=== PATIENT | female | born 1970 | race American Indian/Alaskan Native ===

== ENCOUNTER 2017-02-20 09:05 | Emergency (ER) | payer BC ==
[2017-02-20 09:49] LABS: Basophils % (Auto) 0.8 % (0.0-1.8); Eosinophils % (Auto) 1.5 % (0.0-4.3); Hematocrit 35.1 % (30.3-42.9); Hemoglobin 11.3 gm/dl (10.1-14.3); Mean Corpuscular HGB Conc 32 % (30-34); Mean Corpuscular Hemoglobin 30 pg (28-32); Mean Corpuscular Volume 92 fl (79-97); Platelet Count 342 K/mm3 (140-440); Red Blood Count 3.82 M/mm3 (3.65-5.03); Red Cell Distribution Width 14.5 % (13.2-15.2); White Blood Count 4.1 K/mm3 (4.5-11.0)
--- NOTE | 2017-02-20 09:51 | Cat Scan Report ---
CRANIAL CT SCAN: History: Headache/hypertension. Serial contiguous axial images were obtained through the cranium. Intravenous contrast material was not administered. The ventricles are normal in size and appearance. There is no mass effect or midline shift. No areas of abnormally increased or decreased attenuation are seen. No mass lesion is seen. The mastoid air cells and visualized portions of the sinuses are normal. IMPRESSION: Cranial CT scan within normal limits.
[2017-02-20 09:59] LABS: Anion Gap 17 mmol/L; BUN/Creatinine Ratio 16.66; Blood Urea Nitrogen 10 mg/dL (7-17); Calcium 8.7 mg/dL (8.4-10.2); Carbon Dioxide 24 mmol/L (22-30); Chloride 101.2 mmol/L (98-107); Glucose 99 mg/dL (65-100); Potassium 3.9 mmol/L (3.6-5.0); Sodium 138 mmol/L (137-145)
--- NOTE | 2017-02-20 12:42 | Emergency Department Report ---
HPI - General Chief Complaint: High BP Time Seen by Provider: 02/20/17 12:11 - HPI HPI: Room 22 The patient is a 46-year-old female presenting with a chief complaint of headache. She states yesterday she developed lightheadedness and headache. Patient states the headache was initially occipital but now is frontal. Patient denies any preceding trauma or history of fever. Patient states she had her blood pressure checked and was found to be elevated at 161/103. The patient states her headache continued to linger and was not relieved with Advil. Patient states today she developed nausea with the headache and decided to come to the ED for evaluation. Location: Head Duration: Constant since yesterday Quality: Headache Severity: Moderate Modifying factors: [see above] Context: [see above] Mode of transportation: The patient drove herself to the emergency department and there are no visitors present ED Past Medical Hx - Past Medical History Previous Medical History?: Yes Hx Hypertension: Yes Hx Diabetes: Yes - Surgical History Past Surgical History?: Yes Additional Surgical History: X 2 - Family History Family history: no significant - Social History Smoking Status: Never Smoker Substance Use Type: None (denies illicit drug use), Alcohol (occasional) - Medications Home Medications: Home Medications Medication Instructions Recorded Confirmed Last Taken Type Famotidine/Ca Carb/Mag Hydrox 1 each PO BID #20 tab.chew 06/17/16 Unknown Rx [Pepcid Complete Tablet Chew] Losartan [Cozaar] 12.5 mg PO QDAY #30 tablet 06/17/16 Unknown Rx HYDROcodone/APAP 5-325 [Sargents 1 - 2 each PO Q6HR PRN #14 tablet 02/20/17 Unknown Rx 5/325] Ondansetron [Zofran ODT TAB] 8 mg PO Q8HR #20 tab.rapdis 02/20/17 Unknown Rx predniSONE [Deltasone] 60 mg PO QDAY #15 tab 02/20/17 Unknown Rx ED Review of Systems ROS: Stated complaint: HEADACHE,HBP/NAUSEA Other details as noted in HPI Comment: All other systems reviewed and negative Constitutional: denies: chills, fever Eyes: denies: eye pain, eye discharge, vision change ENT: denies: ear pain, throat pain Respiratory: denies: cough, shortness of breath, wheezing Cardiovascular: denies: chest pain, palpitations Endocrine: no symptoms reported Gastrointestinal: nausea. denies: vomiting Genitourinary: denies: urgency, dysuria, discharge Musculoskeletal: denies: back pain, joint swelling, arthralgia Skin: denies: rash, lesions Neurological: headache Psychiatric: denies: anxiety, depression Hematological/Lymphatic: denies: easy bleeding, easy bruising Physical Exam - Physical Exam Vital Signs: Vital Signs 02/20/17 09:14 Temperature 98.3 F Pulse Rate 101 H Respiratory 16 Rate Blood Pressure 154/113 O2 Sat by Pulse 100 Oximetry Physical Exam: GENERAL: The patient is well-developed well-nourished []. [] HEENT: Normocephalic. Atraumatic. Extraocular motions are intact. Patient has moist mucous membranes. Slight tenderness to palpation in the right buddhist NECK: Supple. Trachea midline CHEST/LUNGS: Clear to auscultation. There is no respiratory distress noted. HEART/CARDIOVASCULAR: Regular. There is no tachycardia. There is no gallop rub or murmur. ABDOMEN: Abdomen is soft, nontender. Patient has normal bowel sounds. There is no abdominal distention. SKIN: There is no rash. There is no edema. There is no diaphoresis. NEURO: The patient is awake, alert, and oriented. The patient is cooperative. The patient has no focal neurologic deficits. The patient has normal speech. Cranial nerves II through XII grossly intact, door tender 5+/5 bilaterally. Normal sensation throughout. There is no pronator drift. Moves all extremities well MUSCULOSKELETAL: There is no evidence of acute injury. ED Course Vital Signs 02/20/17 09:14 Temperature 98.3 F Pulse Rate 101 H Respiratory 16 Rate Blood Pressure 154/113 O2 Sat by Pulse 100 Oximetry ED Medical Decision Making - Lab Data Result diagrams: 02/20/17 09:24 02/20/17 09:24 Laboratory Tests 02/20/17 02/20/17 02/20/17 09:24 09:24 09:24 WBC 4.1 L RBC 3.82 Hgb 11.3 Hct 35.1 MCV 92 MCH 30 MCHC 32 RDW 14.5 Plt Count 342 Lymph % (Auto) 34.3 [place] % (Auto) 6.7 Eos % (Auto) 1.5 Baso % (Auto) 0.8 Lymph # 1.4 [place] # 0.3 Eos # 0.1 Baso # 0.0 Seg Neutrophils % 56.7 Seg Neutrophils # 2.3 ESR 35 Sodium 138 Potassium 3.9 Chloride 101.2 Carbon Dioxide 24 Anion Gap 17 BUN 10 Creatinine 0.6 L Estimated GFR > 60 BUN/Creatinine Ratio 16.66 Glucose 99 Calcium 8.7 - Radiology Data Radiology results: report reviewed (CT head), image reviewed (CT head) CT head (read by radiologist)-cranial CT scan within normal limits. - Medical Decision Making The patient's ESR is slightly elevated at 35. Although her ESR is not very high recent studies have shown approximately 5% of temporal arteritis patients had an ESR less than 40. Although my suspicion is very low I will initiate steroid treatment empirically until patient is able to follow up. I discussed my concern for temporal arteritis and the ESR value with the patient. Patient verbalizes understanding - Differential Diagnosis hypertensive urgency, ICH, intracranial mass, temporal arteritis, headache Critical care attestation.: If time is entered above; I have spent that time in minutes in the direct care of this critically ill patient, excluding procedure time. ED Disposition Clinical Impression: Headache, Elevated erythrocyte sedimentation rate Disposition: DC- TO HOME OR SELFCARE Is pt being admited?: No Does the pt Need Aspirin: No Condition: Stable Instructions: Temporal Arteritis (ED), Acute Headache (ED) Additional Instructions: Return to the emergency department immediately should you develop worsening symptoms, fever, inability to tolerate food or liquid or any other concerns. 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 Please follow up with him for further evaluation) Time of Disposition: 13:25
[2017-02-20 13:40] VITALS: BP 154/95
== END 2017-02-20 13:40 | disposition home or self-care (01) ==
LOC: ED 09:05
DX: R51 Headache (principal); R70.0 Elevated erythrocyte sedimentation rate; I10 Essential (primary) hypertension; E11.9 Type 2 diabetes mellitus without complications
CPT/HCPCS: 36415; 70450; 80048; 85025; 85652

== ENCOUNTER 2017-03-21 08:59 | Outpatient (CLI) | payer BC ==
--- NOTE | 2017-03-22 13:00 | Nuclear Medicine Report ---
NUCLEAR MEDICINE THYROID UPTAKE MULTIPLE HISTORY: Thyroiditis. FINDINGS: Scintigraphic images of the thyroid gland demonstrate no evidence for focal hot or cold nodule. 4 hour uptake measures 11.3%. Normal range 4-18%. 24 hour uptake measures 25.6%. Normal range 18-36%. IMPRESSION: Thyroid scan and uptake within normal limits.
== END 2017-03-21 09:00 | disposition home or self-care (01) ==
LOC: NM 08:59
PROVIDERS: ATTEND Internal Medicine
DX: E06.9 Thyroiditis, unspecified (principal); I10 Essential (primary) hypertension
CPT/HCPCS: 78012; A9516

== ENCOUNTER 2017-09-07 12:54 | Outpatient (CLI) | payer BC ==
--- NOTE | 2017-09-09 09:53 | Mammography Report ---
Bilateral mammogram: Compared to 01/13/15 and 06/16/16. CAD study utilized. Findings: Heterogeneous breast parenchyma bilaterally. Circumscribed faint density, partially obscured by glandular parenchyma, measuring 5 mm in diameter noted in the posterior left breast along the line of the nipple . Seen only on MLO view. No microcalcification. Benign axilla. Impression: Medial focal dense asymmetry left breast. Recommend spot mag and if necessary sonographic examination. BI-RADS CATEGORY: 0 = Needs additional imaging evaluation ACR BI-RADS MAMMOGRAPHIC CODES: 0 = Needs additional imaging evaluation; 1 = Negative; 2 = Benign; 3 = Probably benign; 4 = Suspicious; 5 = Malignant; 6 = Known biopsy-proven malignancy COMMENT: 1. Dense breast tissue, i.e., adenosis, fibrocystic changes, etc., may obscure an underlying neoplasm. 2. Approximately 10% of cancers are not detected with mammography. 3. A negative mammography report should not delay biopsy if a clinically suspicious mass is present. COMMENT: Patient follow-up letters are generated in [employer].
== END 2017-09-07 12:55 | disposition home or self-care (01) ==
LOC: MAMMO 12:54
PROVIDERS: ATTEND Obstetrics & Gynecology
DX: Z12.31 Encounter for screening mammogram for malignant neoplasm of breast (principal)
CPT/HCPCS: 77067

== ENCOUNTER 2017-10-09 08:09 | Outpatient (CLI) | payer BC ==
--- NOTE | 2017-10-09 08:39 | Mammography Report ---
LEFT DIGITAL DIAGNOSTIC MAMMOGRAM : 10/09/17 08:09:00 CLINICAL: Recalled for asymmetry. COMPARISON:09/07/17 screening FINDINGS: Lateralmedial, exaggerated CC and spot compression MLO views were performed and are negative. IMPRESSION: No mammographic evidence of malignancy. BI-RADS CATEGORY: 1 -- Negative RECOMMENDATION: Routine mammographic screening in one year. ACR BI-RADS MAMMOGRAPHIC CODES: 0 = Needs additional imaging evaluation; 1 = Negative; 2 = Benign; 3 = Probably benign; 4 = Suspicious; 5 = Malignant; 6 = Known biopsy-proven malignancy COMMENT: 1. Dense breast tissue, i.e., adenosis, fibrocystic changes, etc., may obscure an underlying neoplasm. 2. Approximately 10% of cancers are not detected with mammography. 3. A negative mammography report should not delay biopsy if a clinically suspicious mass is present. COMMENT: Patient follow-up letters are generated via our [employer] application.
== END 2017-10-09 08:10 | disposition home or self-care (01) ==
LOC: MAMMO 08:09
PROVIDERS: ATTEND Obstetrics & Gynecology
DX: R92.8 Other abnormal and inconclusive findings on diagnostic imaging of breast (principal); I10 Essential (primary) hypertension

== ENCOUNTER 2019-05-12 09:50 | Observation (INO) | payer BC ==
[2019-05-12] MEDS ORDERED: ASPIRIN 325 MG TAB PO ONE (09:56)
[2019-05-12 10:30] LABS: Basophils % (Auto) 0.6 % (0.0-1.8); Eosinophils # (Auto) 0.1 K/mm3 (0.0-0.4); Eosinophils % (Auto) 1.4 % (0.0-4.3); Hematocrit 34.2 % (30.3-42.9); Hemoglobin 10.8 gm/dl (10.1-14.3); Lymphocytes # (Auto) 1.5 K/mm3 (1.2-5.4); Lymphocytes % (Auto) 27.9 % (13.4-35.0); Mean Corpuscular HGB Conc 32 % (30-34); Mean Corpuscular Volume 91 fl (79-97); Monocytes # (Auto) 0.4 K/mm3 (0.0-0.8); Monocytes % (Auto) 6.7 % (0.0-7.3); Platelet Count 323 K/mm3 (140-440); Red Blood Count 3.76 M/mm3 (3.65-5.03); Red Cell Distribution Width 17.1 % (13.2-15.2)
--- NOTE | 2019-05-12 10:38 | XRay Report ---
CHEST 1 VIEW 05/12/2019 10:28 AM INDICATION / CLINICAL INFORMATION: Chest Pain. COMPARISON: 06/16/16 FINDINGS: SUPPORT DEVICES: None. HEART / MEDIASTINUM: No significant abnormality. LUNGS / PLEURA: No significant pulmonary or pleural abnormality. No pneumothorax. ADDITIONAL FINDINGS: No significant additional findings. IMPRESSION: 1. No acute findings. No change. Signer Name: Chato Calloway MD Signed: 05/12/2019 10:34 AM Workstation Name: [id number]
[2019-05-12 10:42] LABS: BUN/Creatinine Ratio 13; Blood Urea Nitrogen 13 mg/dL (7-17); Calcium 9.3 mg/dL (8.4-10.2); Hemolysis Index 1
[2019-05-12] MEDS ORDERED: ASPIRIN 325 MG TAB ONE ×2 (11:58→12:29)
--- NOTE | 2019-05-12 11:59 | Emergency Department Report ---
ED Chest Pain HPI - General Chief Complaint: Chest Pain Stated Complaint: CHEST PAIN Time Seen by Provider: 05/12/19 10:56 Source: patient Mode of arrival: Ambulatory Limitations: No Limitations - History of Present Illness Initial Comments: This is a 48-year-old female here report that she is having chest pain that she has had in the past which was in 2016. She said she was seen here and was seen by [facility] cardiology where she had a stress test done EKG done but she never had heart cath or echocardiogram then. Patient is complaining the mid chest pain and that she described as heaviness and she has a history of diabetes and hypertension. She is also complaining of some shortness of breath but no radiation of pain. She said this started yesterday and second episode this morning and thus Y when she called her doctor from [place] told her to come to the emergency room. Her blood pressure was 152/103 on arrival and had subsided since. Pain is worse with taking a deep breath. MD Complaint: chest pain -: Last night Onset: during rest Pain Location: substernal Pain Radiation: none Severity: severe Severity scale (0 -10): 8 Quality: heaviness Consistency: constant Improves With: nothing Worsens With: inspiration re: denies: nausea, vomting, diaphoresis, dyspnea, sense of impending doom Other Symptoms: denies: cough, fever, syncope, rash, acid taste in mouth, leg swelling, palpitations, burping (except for given the medication was important) Treatments Prior to Arrival: none Aspirin use within the Past 7 Days: (0) No - Related Data On Oral Contraceptives: No Home Medications Medication Instructions Recorded Confirmed Last Taken Cyclobenzaprine [Flexeril] 10 mg PO DAILY PRN 05/12/19 05/12/19 05/12/19 Metoprolol Xl [Metoprolol 100 mg PO DAILY 05/12/19 05/12/19 05/12/19 SUCCINATE ER TAB] Spironolactone [Aldactone] 50 mg PO DAILY 05/12/19 05/12/19 05/12/19 Allergies Allergy/AdvReac Type Severity Reaction Status Date / Time EZRA Inhibitors Allergy COUGHING Verified 05/12/19 12:18 SEVERE propranolol Allergy Diarrhea,NA Unverified 05/12/19 12:18 USEA Heart Score - HEART Score History: Slightly suspicious EKG: Non-specific Age: 45-65 Risk factors: 1-2 risk factors Troponin: < normal limit HEART Score: 3 - Critical Actions Critical Actions: 0-3 pts:0.9-1.7%risk of adverse cardiac event.Candidate for discharge ED Review of Systems ROS: Stated complaint: CHEST PAIN Other details as noted in HPI Constitutional: denies: chills, fever Eyes: denies: eye discharge ENT: denies: throat pain, congestion Respiratory: denies: cough, shortness of breath, SOB with exertion, wheezing Cardiovascular: chest pain. denies: palpitations, dyspnea on exertion, edema, syncope Gastrointestinal: denies: abdominal pain, nausea, vomiting Musculoskeletal: denies: back pain, joint swelling, arthralgia, myalgia Skin: denies: rash Neurological: denies: headache, paresthesias, abnormal gait, vertigo ED Past Medical Hx - Past Medical History Previous Medical History?: Yes Hx Hypertension: Yes Hx Congestive Heart Failure: No Hx Diabetes: Yes Hx Asthma: No Hx COPD: No - Surgical History Past Surgical History?: Yes Additional Surgical History: X 2 - Family History Family history: hypertension - Social History Smoking Status: Never Smoker Substance Use Type: None - Medications Home Medications: Home Medications Medication Instructions Recorded Confirmed Last Taken Type Cyclobenzaprine [Flexeril] 10 mg PO DAILY PRN 05/12/19 05/12/19 05/12/19 History Metoprolol Xl [Metoprolol 100 mg PO DAILY 05/12/19 05/12/19 05/12/19 History SUCCINATE ER TAB] Spironolactone [Aldactone] 50 mg PO DAILY 05/12/19 05/12/19 05/12/19 History ED Physical Exam - General Limitations: No Limitations General appearance: alert, in no apparent distress - Head Head exam: Present: atraumatic, normocephalic - Eye Eye exam: Present: normal appearance, PERRL, EOMI Pupils: Present: normal accommodation - ENT ENT exam: Present: normal exam, normal orophraynx, mucous membranes moist - Neck Neck exam: Present: normal inspection, full ROM. Absent: tenderness, lymphadenopathy - Respiratory Respiratory exam: Present: normal lung sounds bilaterally. Absent: respiratory distress, chest wall tenderness, accessory muscle use, decreased breath sounds, prolonged expiratory - Cardiovascular Cardiovascular Exam: Present: regular rate, normal rhythm, normal heart sounds. Absent: systolic murmur, diastolic murmur, rubs, gallop, S3, S4 - GI/Abdominal GI/Abdominal exam: Present: soft, normal bowel sounds. Absent: distended, tenderness, rigid, organomegaly, mass, bruit - External exam: Present: normal external exam - Extremities Exam Extremities exam: Present: normal inspection, full ROM, normal capillary refill, other (No cce. + 2 pulses in all extremities, no neurovascular compromise). Absent: tenderness, pedal edema, joint swelling, calf tenderness - Back Exam Back exam: Present: normal inspection. Absent: full ROM, tenderness, rash noted - Neurological Exam Neurological exam: Present: alert, oriented X3, normal gait - Psychiatric Psychiatric exam: Present: normal affect, normal mood - Skin Skin exam: Present: warm, dry, intact, normal color ED Course Vital Signs 05/12/19 05/12/19 05/12/19 09:55 11:22 11:23 Temperature 98.6 F Pulse Rate 95 H 88 Respiratory 18 17 17 Rate Blood Pressure 152/103 Blood Pressure 129/86 [Right] O2 Sat by Pulse 100 100 Oximetry 05/12/19 05/12/19 05/12/19 12:57 14:15 14:47 Temperature Pulse Rate 78 78 74 Respiratory 18 18 Rate Blood Pressure 150/62 Blood Pressure 156/78 154/100 [Right] O2 Sat by Pulse 99 100 Oximetry 05/12/19 05/12/19 05/12/19 14:48 15:08 16:56 Temperature Pulse Rate 70 93 H 93 H Respiratory 18 14 Rate Blood Pressure 117/60 Blood Pressure 126/78 104/61 [Right] O2 Sat by Pulse 99 100 Oximetry - Reevaluation(s) Reevaluation #1: 05/12/19 12:17 Patient is stable at present serum troponin is stable. X-ray stable. EKG is stable. Chest pain is subsided at present. Awaiting second troponin and EKG. Heart score is 3 and PASQUALE is at 2. Patient was given aspirin 325 mg. Reevaluation #2: 05/12/19 14:44 Patient given nitroglycerin and placed on oxygen because of continued chest pain. Serial troponin negative 2 and serial EKG negative. All other lab work are stable. Reevaluation #3: 05/12/19 14:48 Chest pain is 6 out of 10 after nitroglycerin so she is given another dose of nitroglycerin and remained and O2. She also has a headache. See given 975 mg Tylenol by mouth. This is status post nitroglycerin. Reevaluation #4: 05/12/19 15:[address] Jalloh decision to admit patient to telemetry. She stable and in no acute distress. Second dose of nitroglycerin relieved her chest pain. Reevaluation #5: 05/12/19 17:57 Patient stable in no acute distress. She is awaiting in telemetry bed. Her vital signs are stable she is afebrile and she does not have chest pain at present. PASQUALE score - Pasquale Score Age > 65: (0) No Aspirin use within the Past 7 Days: (0) No 3 or more CAD Risk Factors: (1) Yes 2 or more Angina events in past 24 hrs: (1) Yes Known CAD with more than 50% Stenosis: (0) No Elevated Cardiac Markers: (0) No ST Deviation Greater than 0.5mm: (0) No PASQUALE Score: 2 ED Medical Decision Making - Lab Data Result diagrams: 05/12/19 10:03 05/12/19 10:03 Lab Results 05/12/19 05/12/19 05/12/19 Range/Units 10:03 10:03 Unknown WBC 5.3 (4.5-11.0) K/mm3 RBC 3.76 (3.65-5.03) M/mm3 Hgb 10.8 (10.1-14.3) gm/dl Hct 34.2 (30.3-42.9) % MCV 91 (79-97) fl MCH 29 (28-32) pg MCHC 32 (30-34) % RDW 17.1 H (13.2-15.2) % Plt Count 323 (140-440) K/mm3 Lymph % (Auto) 27.9 (13.4-35.0) % [place] % (Auto) 6.7 (0.0-7.3) % Eos % (Auto) 1.4 (0.0-4.3) % Baso % (Auto) 0.6 (0.0-1.8) % Lymph # 1.5 (1.2-5.4) K/mm3 [place] # 0.4 (0.0-0.8) K/mm3 Eos # 0.1 (0.0-0.4) K/mm3 Baso # 0.0 (0.0-0.1) K/mm3 Seg Neutrophils % 63.4 (40.0-70.0) % Seg Neutrophils # 3.4 (1.8-7.7) K/mm3 Sodium 139 (137-145) mmol/L Potassium 4.4 (3.6-5.0) mmol/L Chloride 106.2 (98-107) mmol/L Carbon Dioxide 20 L (22-30) mmol/L Anion Gap 17 mmol/L BUN 13 (7-17) mg/dL Creatinine 1.0 (0.7-1.2) mg/dL Estimated GFR > 60 ml/min BUN/Creatinine Ratio 13 % Glucose 88 (65-100) mg/dL Calcium 9.3 (8.4-10.2) mg/dL Troponin T < 0.010 < 0.010 (0.00-0.029) ng/mL - EKG Data -: EKG Interpreted by Me (attending physician) EKG shows normal: sinus rhythm - EKG Data When compared to previous EKG there are: no significant change Interpretation: nonspecific ST-T wave tito - Radiology Data Radiology results: report reviewed Chest x-ray dictated by radiologist and report reviewed by myself in no acute findings. Findings [address] [address] XRay Report Signed Patient: TL BERRY MR#: [id number] : 1970 Acct:[id number] Age/Sex: 48 / F ADM Date: 05/12/19 Loc: ED Attending Dr: Ordering Physician: ED MD KAVIN Date of Service: 05/12/19 Procedure(s): XR chest 1V ap Accession Number(s): [id number] cc: ED MD KAVIN Fluoro Time In Minutes: CHEST 1 VIEW 05/12/2019 10:28 AM INDICATION / CLINICAL INFORMATION: Chest Pain. COMPARISON: 06/16/16 FINDINGS: SUPPORT DEVICES: None. HEART / MEDIASTINUM: No significant abnormality. LUNGS / PLEURA: No significant pulmonary or pleural abnormality. No pneumothorax. ADDITIONAL FINDINGS: No significant additional findings. IMPRESSION: 1. No acute findings. No change. Signer Name: Chato Calloway MD Signed: 05/12/2019 10:34 AM Workstation Name: [id number] Transcribed By: DT Dictated By: Yosi Calloway MD Electronically Authenticated By: Yosi Calloway MD Signed Date/Time: 05/12/19 1034 DD/ 1033 TD/TT: - Medical Decision Making This is a 48-year-old female here for chest pain that started last night. She says she came in because she called her primary care doctor and he told her to come to the emergency room. Her chest pain was 8 out of 10 upon arrival and she was given aspirin and chest pain went back up so she was given nitroglycerin 2 which second nitroglycerin relieved her chest pain. She was given Tylenol 975 mg for headache status post nitroglycerin. Patient was placed and O2 briefly without any abnormality in O2 sats. Patient was seen by Dr. JALLOH due to decision by Dr. Silver to admit patient because troponin 2 was negative and EKG 2 is stable but she states she still continues to have chest pain. Other lab work was stable. Cardiology consulted - Differential Diagnosis ACS, atypical chest pain, pneumonia, costochondritis Critical care attestation.: If time is entered above; I have spent that time in minutes in the direct care of this critically ill patient, excluding procedure time. ED Disposition Clinical Impression: Elevated blood pressure reading with diagnosis of hypertension Chest pain Qualifiers: Chest pain type: unspecified Qualified Code(s): R07.9 - Chest pain, unspecified Disposition: OP ADMIT IP TO THIS HOSP Is pt being admited?: Yes Does the pt Need Aspirin: No Condition: Stable Instructions: Chest Pain (ED), Hypertension (ED) Referrals: PRIMARY CARE, [Primary Care Provider] - 3-5 Days
[2019-05-12] MEDS ORDERED: NITROGLYCERIN 0.4 MG TAB SUBL SL ONE ×3 (12:30→14:47)
[2019-05-12] MEDS ORDERED: ACETAMINOPHEN 325 MG TAB PO ONE ×2 (14:45→14:46)
[2019-05-12 15:16] LABS: Bacteria,Urine 2+ /HPF (Negative); Bilirubin,Urine NEG (Negative); Blood,Urine SM (Negative); Color,Urine Yellow (Yellow); Mucus,Urine FEW /HPF; Protein,Urine <15 mg/dL mg/dL (Negative); Urobilinogen,Urine < 2.0 mg/dL (<2.0)
[2019-05-12 15:47] LABS: Alanine Aminotransferase 10 units/L (7-56); Albumin 4.4 g/dL (3.9-5); Bilirubin,Direct < 0.2 mg/dL (0-0.2)
[2019-05-12] MEDS ORDERED: CYCLOBENZAPRINE 10 MG TAB PO PRN (20:14)
[2019-05-12] MEDS ORDERED: ONDANSETRON 4 MG/2 ML INJ IV PRN (20:15)
[2019-05-12] MEDS ORDERED: oxyCODONE /ACETAMINOPHEN 5-325MG TAB PO PRN (20:15)
[2019-05-12] MEDS ORDERED: ACETAMINOPHEN 325 MG TAB PO PRN (20:15)
--- NOTE | 2019-05-12 20:28 | History and Physical Report ---
History of Present Illness Date of examination: 05/12/19 Date of admission: 05/12/2019 Chief complaint: Chest pain since a.m. History of present illness: 48-year-old female comes in for chest pain since a.m. Chest pain is intermittent and retrosternal. No diaphoresis no shortness of breath. No radiation. Chest pain is about 6 on a scale of 1-10. Dull in character. Patient had a cardiac workup in 2016 and stress test was negative. Patient did not have a cardiac catheter echocardiogram then. Chest pain as heaviness in nature. No recent travel. Her blood pressure was high--152/103 at [facility] and was sent here for evaluation Past Medical History Hypertension Diabetes Surgical History Past Surgical History?: Yes Additional Surgical History: X 2 Family History Family history: hypertension Social History Smoking Status: Never Smoker Substance Use Type: None - Medications Home Medications: Home Medications Medication Instructions Recorded Confirmed Last Taken Type Cyclobenzaprine [Flexeril] 10 mg PO DAILY PRN 05/12/19 05/12/19 05/12/19 History Metoprolol Xl [Metoprolol 100 mg PO DAILY 05/12/19 05/12/19 05/12/19 History SUCCINATE ER TAB] Spironolactone [Aldactone] 50 mg PO DAILY 05/12/19 05/12/19 05/12/19 History Review of Systems ROS: Stated complaint: CHEST PAIN Other details as noted in HPI Constitutional: denies: chills, fever Eyes: denies: eye discharge ENT: denies: throat pain, congestion Respiratory: denies: cough, shortness of breath, SOB with exertion, wheezing Cardiovascular: chest pain. denies: palpitations, dyspnea on exertion, edema, syncope Gastrointestinal: denies: abdominal pain, nausea, vomiting Musculoskeletal: denies: back pain, joint swelling, arthralgia, myalgia Skin: denies: rash Neurological: denies: headache, paresthesias, abnormal gait, vertigo Past History Past Medical History: diabetes, hypertension Medications and Allergies Allergies Allergy/AdvReac Type Severity Reaction Status Date / Time EZRA Inhibitors Allergy COUGHING Verified 05/12/19 12:18 SEVERE propranolol Allergy Diarrhea,NA Unverified 05/12/19 12:18 USEA Home Medications Medication Instructions Recorded Confirmed Last Taken Type Cyclobenzaprine [Flexeril] 10 mg PO DAILY PRN 05/12/19 05/12/19 05/12/19 History Metoprolol Xl [Metoprolol 100 mg PO DAILY 05/12/19 05/12/19 05/12/19 History SUCCINATE ER TAB] Spironolactone [Aldactone] 50 mg PO DAILY 05/12/19 05/12/19 05/12/19 History Active Meds: Active Medications Acetaminophen (Tylenol) 650 mg PO Q4H PRN PRN Reason: Pain MILD(1-3)/Fever >100.5/VANN Cyclobenzaprine HCl (Flexeril) 10 mg PO DAILY PRN PRN Reason: Spasms Enoxaparin Sodium (Enoxaparin) 40 mg SUB-Q QDAY CHRISSY Hydromorphone HCl (Dilaudid) 0.5 mg IV Q3H PRN PRN Reason: Pain , Severe (7-10) Metoprolol Succinate (Metoprolol Xl) 100 mg PO DAILY CHRISSY Ondansetron HCl (Zofran) 4 mg IV Q8H PRN PRN Reason: Nausea And Vomiting Oxycodone/Acetaminophen (Percocet 5/325) 1 tab PO Q6H PRN PRN Reason: Pain, Moderate (4-6) Sodium Chloride (Sodium Chloride Flush Syringe 10 Ml) 10 ml IV BID HCRISSY Sodium Chloride (Sodium Chloride Flush Syringe 10 Ml) 10 ml IV PRN PRN PRN Reason: LINE FLUSH Spironolactone (Aldactone) 50 mg PO DAILY [facility] Exam - Constitutional Vitals: Temp Pulse Resp BP Pulse Ox 98.6 F 97 H 17 126/84 99 05/12/19 19:15 05/12/19 19:15 05/12/19 19:15 05/12/19 19:15 05/12/19 19:15 General appearance: Present: no acute distress, well-nourished - EENT Eyes: Present: PERRL ENT: hearing intact, clear oral mucosa - Neck Neck: Present: supple, normal ROM - Respiratory Respiratory effort: normal Respiratory: bilateral: CTA - Cardiovascular Heart rate: 91 Rhythm: regular Heart Sounds: Present: S1 & S2. Absent: rub, click - Extremities Extremities: no ischemia, pulses intact, pulses symmetrical, No edema Peripheral Pulses: within normal limits - Abdominal General gastrointestinal: Present: soft, non-tender, non-distended, normal bowel sounds Female genitourinary: Present: normal - Rectal Rectal Exam: deferred - Integumentary Integumentary: Present: clear, warm, dry - Musculoskeletal Musculoskeletal: gait normal, strength equal bilaterally - Psychiatric Psychiatric: appropriate mood/affect, intact judgment & insight - Neurologic Neurologic: CNII-XII intact, moves all extremities - Allied Health Allied health notes reviewed: nursing Results - Labs CBC & Chem 7: 05/12/19 10:03 05/12/19 10:03 Labs: Laboratory Last Values WBC 5.3 K/mm3 (4.5-11.0) 05/12/19 10:03 RBC 3.76 M/mm3 (3.65-5.03) 05/12/19 10:03 Hgb 10.8 gm/dl (10.1-14.3) 05/12/19 10:03 Hct 34.2 % (30.3-42.9) 05/12/19 10:03 MCV 91 fl (79-97) 05/12/19 10:03 MCH 29 pg (28-32) 05/12/19 10:03 MCHC 32 % (30-34) 05/12/19 10:03 RDW 17.1 % (13.2-15.2) H 05/12/19 10:03 Plt Count 323 K/mm3 (140-440) 05/12/19 10:03 Lymph % (Auto) 27.9 % (13.4-35.0) 05/12/19 10:03 [place] % (Auto) 6.7 % (0.0-7.3) 05/12/19 10:03 Eos % (Auto) 1.4 % (0.0-4.3) 05/12/19 10:03 Baso % (Auto) 0.6 % (0.0-1.8) 05/12/19 10:03 Lymph # 1.5 K/mm3 (1.2-5.4) 05/12/19 10:03 [place] # 0.4 K/mm3 (0.0-0.8) 05/12/19 10:03 Eos # 0.1 K/mm3 (0.0-0.4) 05/12/19 10:03 Baso # 0.0 K/mm3 (0.0-0.1) 05/12/19 10:03 Seg Neutrophils % 63.4 % (40.0-70.0) 05/12/19 10:03 Seg Neutrophils # 3.4 K/mm3 (1.8-7.7) 05/12/19 10:03 Sodium 139 mmol/L (137-145) 05/12/19 10:03 Potassium 4.4 mmol/L (3.6-5.0) 05/12/19 10:03 Chloride 106.2 mmol/L (98-107) 05/12/19 10:03 Carbon Dioxide 20 mmol/L (22-30) L 05/12/19 10:03 Anion Gap 17 mmol/L 05/12/19 10:03 BUN 13 mg/dL (7-17) 05/12/19 10:03 Creatinine 1.0 mg/dL (0.7-1.2) 05/12/19 10:03 Estimated GFR > 60 ml/min 05/12/19 10:03 BUN/Creatinine Ratio 13 % 05/12/19 10:03 Glucose 88 mg/dL (65-100) 05/12/19 10:03 Calcium 9.3 mg/dL (8.4-10.2) 05/12/19 10:03 Total Bilirubin < 0.20 mg/dL (0.1-1.2) 05/12/19 10:03 Direct Bilirubin < 0.2 mg/dL (0-0.2) 05/12/19 10:03 Indirect Bilirubin 0.0 mg/dL 05/12/19 10:03 AST 16 units/L (5-40) 05/12/19 10:03 ALT 10 units/L (7-56) 05/12/19 10:03 Alkaline Phosphatase 68 units/L (35-129) 05/12/19 10:03 Total Creatine Kinase 65 units/L (30-135) 05/12/19 10:03 Troponin T < 0.010 ng/mL (0.00-0.029) 05/12/19 Unknown Total Protein 8.5 g/dL (6.3-8.2) H 05/12/19 10:03 Albumin 4.4 g/dL (3.9-5) 05/12/19 10:03 Albumin/Globulin Ratio 1.1 % 05/12/19 10:03 Urine Color Yellow (Yellow) 05/12/19 Unknown Urine Turbidity Slightly-cloudy (Clear) 05/12/19 Unknown Urine pH 5.0 (5.0-7.0) 05/12/19 Unknown Ur Specific [place] 1.020 (1.003-1.030) 05/12/19 Unknown Urine Protein <15 mg/dl mg/dL (Negative) 05/12/19 Unknown Urine Glucose (UA) Neg mg/dL (Negative) 05/12/19 Unknown Urine Ketones Neg mg/dL (Negative) 05/12/19 Unknown Urine Blood Sm (Negative) 05/12/19 Unknown Urine Nitrite Neg (Negative) 05/12/19 Unknown Urine Bilirubin Neg (Negative) 05/12/19 Unknown Urine Urobilinogen < 2.0 mg/dL (<2.0) 05/12/19 Unknown Ur Leukocyte Esterase Tr (Negative) 05/12/19 Unknown Urine WBC (Auto) 4.0 /HPF (0.0-6.0) 05/12/19 Unknown Urine RBC (Auto) 3.0 /HPF (0.0-6.0) 05/12/19 Unknown U Epithel Cells (Auto) 11.0 /HPF (0-13.0) 05/12/19 Unknown Urine Bacteria (Auto) 2+ /HPF (Negative) 05/12/19 Unknown Urine Mucus Few /HPF 05/12/19 Unknown - Imaging and Cardiology EKG: report reviewed (91/m no acute ST-T wave changes. Nonspecific T wave abnormalities) Chest x-ray: report reviewed (no acute findings) Assessment and Plan Advance Directives: Yes (full code) VTE prophylaxis?: Chemical Plan of care discussed with patient/family: Yes - Patient Problems (1) Chest pain Current Visit: Yes Status: Acute Qualifiers: Chest pain type: unspecified Qualified Code(s): R07.9 - Chest pain, unspecified Plan to address problem: Chest pain rule out PA protocol Serial troponins Lexiscan a morning Cardiology consult (2) Hypertension Current Visit: Yes Status: Chronic Qualifiers: Hypertension type: essential hypertension Qualified Code(s): I10 - Essential (primary) hypertension Plan to address problem: Continue losartan and metoprolol (3) Diabetes Current Visit: Yes Status: Chronic Qualifiers: Diabetes mellitus type: type 2 Plan to address problem: Check hemoglobin A1c Coverage for now Patient not on any oral hypoglycemics on the pulmonary medicines (4) DVT prophylaxis Current Visit: Yes Status: Acute Plan to address problem: On Lovenox and GI prophylaxis
[2019-05-12] MEDS ORDERED: ENOXAPARIN 40 MG/0.4 ML INJ SUB-Q SCH (21:00)
[2019-05-12] MEDS: METOPROLOL SUCCINATE XL 100 MG TAB PO SCH (22:25)
[2019-05-12] MEDS: HYDROmorphone 1 MG/1 ML INJ IV PRN (22:27)
[2019-05-12] MEDS: INSULIN LISPRO 100 UNIT/ML SUB-Q SCH (22:28)
[2019-05-12] MEDS: LOSARTAN 50 MG TAB PO SCH (22:41)
[2019-05-12] MEDS: SPIRONOLACTONE 50 MG TAB PO SCH (22:41)
[2019-05-13] MEDS: HYDROmorphone 1 MG/1 ML INJ IV PRN ×5 (02:52→16:05)
[2019-05-13 03:26] LABS: Mean Corpuscular HGB Conc 30 % (30-34); Mean Corpuscular Volume 95 fl (79-97); Platelet Count 243 K/mm3 (140-440); Red Blood Count 3.57 M/mm3 (3.65-5.03); Red Cell Distribution Width 17.9 % (13.2-15.2)
[2019-05-13 03:27] LABS: Hematocrit 33.9 % (30.3-42.9); Hemoglobin 10.2 gm/dl (10.1-14.3)
[2019-05-13 03:32] LABS: Alanine Aminotransferase 10 units/L (7-56); Albumin 3.8 g/dL (3.9-5); BUN/Creatinine Ratio 18; Blood Urea Nitrogen 14 mg/dL (7-17); Calcium 8.5 mg/dL (8.4-10.2); Hemolysis Index 14
[2019-05-13] MEDS: INSULIN LISPRO 100 UNIT/ML SUB-Q SCH ×3 (07:30→17:34)
[2019-05-13] MEDS ORDERED: REGADENOSON 0.4 MG/5 ML INJ IV ONE ×2 (08:16→09:00)
--- NOTE | 2019-05-13 11:51 | Consultation ---
History of Present Illness Consult date: 05/13/19 Consult reason: chest pain History of present illness: Patient is a 48-year-old woman with a history of hypertension, who presented with nonexertional chest pain, was evaluated in the emergency room and admitted for rule out protocol. ECG was a normal sinus rhythm without acute changes. Serial troponin levels were normal. Today, she underwent an exercise thallium stress test during which she exercised for 7.5 minutes of Suresh protocol, no chest pain, borderline ST segment abnormalities in the inferior lateral leads. The thallium images are pending for final test interpretation. Past History Past Medical History: diabetes, hypertension Medications and Allergies Allergies Allergy/AdvReac Type Severity Reaction Status Date / Time EZRA Inhibitors Allergy COUGHING Verified 05/12/19 12:18 SEVERE propranolol Allergy Diarrhea,NA Unverified 05/12/19 12:18 USEA Home Medications Medication Instructions Recorded Confirmed Last Taken Type Cyclobenzaprine [Flexeril] 10 mg PO DAILY PRN 05/12/19 05/12/19 05/12/19 History Metoprolol Xl [Metoprolol 100 mg PO DAILY 05/12/19 05/12/19 05/12/19 History SUCCINATE ER TAB] Spironolactone [Aldactone] 50 mg PO DAILY 05/12/19 05/12/19 05/12/19 History Active Meds: Active Medications Acetaminophen (Tylenol) 650 mg PO Q4H PRN PRN Reason: Pain MILD(1-3)/Fever >100.5/VANN Last Admin: 05/13/19 07:33 Dose: 650 mg Documented by: Cyclobenzaprine HCl (Flexeril) 10 mg PO DAILY PRN PRN Reason: Spasms Enoxaparin Sodium (Enoxaparin) 40 mg SUB-Q QDAY@2200 CHRISSY Last Admin: 05/12/19 22:26 Dose: 40 mg Documented by: Hydromorphone HCl (Dilaudid) 0.5 mg IV Q3H PRN PRN Reason: Pain , Severe (7-10) Last Admin: 05/13/19 02:54 Dose: 0.25 mg Documented by: Insulin Human Lispro (Humalog) 0 unit SUB-Q [facility]; Protocol Last Admin: 05/13/19 07:30 Dose: Not Given Documented by: Losartan Potassium (Cozaar) 50 mg PO QDAY [facility] Last Admin: 05/12/19 22:41 Dose: Not Given Documented by: Metoprolol Succinate (Metoprolol Xl) 100 mg PO DAILY [facility] Last Admin: 05/12/19 22:25 Dose: 100 mg Documented by: Ondansetron HCl (Zofran) 4 mg IV Q8H PRN PRN Reason: Nausea And Vomiting Last Admin: 05/12/19 23:18 Dose: 4 mg Documented by: Oxycodone/Acetaminophen (Percocet 5/325) 1 tab PO Q6H PRN PRN Reason: Pain, Moderate (4-6) Sodium Chloride (Sodium Chloride Flush Syringe 10 Ml) 10 ml IV BID [facility] Last Admin: 05/12/19 22:26 Dose: 10 ml Documented by: Sodium Chloride (Sodium Chloride Flush Syringe 10 Ml) 10 ml IV PRN PRN PRN Reason: LINE FLUSH Spironolactone (Aldactone) 50 mg PO DAILY [facility] Last Admin: 05/12/19 22:41 Dose: Not Given Documented by: Review of Systems Cardiovascular: chest pain, shortness of breath, no orthopnea, no palpitations, no edema, no syncope, no lightheadedness Physical Examination Vital Signs Temp Pulse Resp BP Pulse Ox 98.6 F 95 H 18 152/103 100 05/12/19 09:55 05/12/19 09:55 05/12/19 09:55 05/12/19 09:55 05/12/19 09:55 General appearance: no acute distress HEENT: Positive: PERRL Neck: Positive: neck supple Cardiac: Positive: Reg Rate and Rhythm Lungs: Positive: clear to auscultation Neuro: Positive: Grossly Intact Abdomen: Positive: Soft Female genitourinary: deferred Skin: Positive: Clear Extremities: Absent: edema Results 05/13/19 02:26 05/13/19 Unknown Cardiac Enzymes 05/12/19 05/13/19 Range/Units 10:03 Unknown AST 16 14 (5-40) units/L CBC 05/13/19 Range/Units 02:26 WBC 6.4 (4.5-11.0) K/mm3 RBC 3.57 L (3.65-5.03) M/mm3 Hgb 10.2 (10.1-14.3) gm/dl Hct 33.9 (30.3-42.9) % Plt Count 243 (140-440) K/mm3 Lymph # [employer] [place] # [employer] Eos # [employer] Baso # [employer] Comprehensive Metabolic Panel 05/12/19 05/13/19 Range/Units 10:03 Unknown Sodium 136 L (137-145) mmol/L Potassium 4.5 (3.6-5.0) mmol/L Chloride 107.5 H (98-107) mmol/L Carbon Dioxide 17 L (22-30) mmol/L BUN 14 (7-17) mg/dL Creatinine 0.8 (0.7-1.2) mg/dL Glucose 109 H (65-100) mg/dL Calcium 8.5 (8.4-10.2) mg/dL Direct Bilirubin < 0.2 (0-0.2) mg/dL Indirect Bilirubin 0.0 mg/dL AST 16 14 (5-40) units/L ALT 10 10 (7-56) units/L Alkaline Phosphatase 68 60 (35-129) units/L Total Protein 8.5 H 7.6 (6.3-8.2) g/dL Albumin 4.4 3.8 L (3.9-5) g/dL EKG interpretations - Telemetry EKG Rhythm: Sinus Rhythm Assessment and Plan - Patient Problems (1) Chest pain Current Visit: Yes Status: Acute Qualifiers: Chest pain type: unspecified Qualified Code(s): R07.9 - Chest pain, unspecified Plan to address problem: Atypical chest pain, negative cardiac enzymes, status post exercise thallium stress test, results are pending.
--- NOTE | 2019-05-13 13:01 | Discharge Summary ---
Providers - Providers Date of Admission: 05/12/19 20:15 Date of discharge: 05/13/19 Attending physician: RUT JALLOH 05/12/19 18:00 Consult to Physician [CONS] Stat Comment: Consulting Provider: JOSELYN BACH Physician Instructions: Reason For Exam: Chest pain Primary care physician: MOLD INJECTOR Hospitalization Condition: Stable Pertinent studies: Stress Thalium --negative Hospital course: 48-year-old female comes in for chest pain since a.m. Chest pain is intermittent and retrosternal. No diaphoresis no shortness of breath. No radiation. Chest pain is about 6 on a scale of 1-10. Dull in character. Patient had a cardiac workup in 2016 and stress test was negative. Patient did not have a cardiac catheter echocardiogram then. Chest pain as heaviness in nature. No recent travel. Her blood pressure was high--152/103 at [facility] and was sent here for evaluation (1) Chest pain Current Visit: Yes Status: Acute Qualifiers: Chest pain type: unspecified Qualified Code(s): R07.9 - Chest pain, unspecified Plan to address problem: Patient is a 48-year-old woman with a history of hypertension, who presented with nonexertional chest pain, was evaluated in the emergency room and admitted for rule out protocol. ECG was a normal sinus rhythm without acute changes. Serial troponin levels were normal. Today, she underwent an exercise thallium stress test during which she exercised for 7.5 minutes of Suresh protocol, no chest pain, borderline ST segment abnormalities in the inferior lateral leads. Stress test negative.ASA 81 mg po qd regularly. (2) Hypertension Current Visit: Yes Status: Chronic Qualifiers: Hypertension type: essential hypertension Qualified Code(s): I10 - Essential (primary) hypertension Plan to address problem: Continue losartan and metoprolol BP controlled (3) Diabetes Current Visit: Yes Status: Chronic Qualifiers: Diabetes mellitus type: type 2 Plan to address problem: Hemoglobin A1c--5.8 To manage with diet control ,Exercise and Weight loss.patient counselled. Patient not on any oral hypoglycemics Disposition: - TO HOME OR SELFCARE Core Measure Documentation - Palliative Care Palliative Care/ Comfort Measures: Not Applicable - Core Measures Any of the following diagnoses?: none Exam - Constitutional Vitals: Temp Pulse Resp BP Pulse Ox 97.5 F L 88 18 136/89 99 05/13/19 07:19 05/13/19 04:56 05/13/19 07:33 05/13/19 11:18 05/13/19 07:54 General appearance: Present: no acute distress, well-nourished - EENT Eyes: Present: PERRL ENT: hearing intact, clear oral mucosa - Neck Neck: Present: supple, normal ROM - Respiratory Respiratory effort: normal Respiratory: bilateral: CTA - Cardiovascular Heart rate: 78 Rhythm: regular Heart Sounds: Present: S1 & S2. Absent: rub, click - Extremities Extremities: no ischemia, pulses intact, pulses symmetrical, No edema Peripheral Pulses: within normal limits - Abdominal General gastrointestinal: Present: soft, non-tender, non-distended, normal bowel sounds Female genitourinary: Present: normal - Rectal Rectal Exam: deferred - Integumentary Integumentary: Present: clear, warm, dry - Musculoskeletal Musculoskeletal: gait normal, strength equal bilaterally - Psychiatric Psychiatric: appropriate mood/affect, intact judgment & insight - Neurologic Neurologic: CNII-XII intact, moves all extremities - Allied Health Allied health notes reviewed: nursing, case management Plan Activity: no restrictions Diet: low fat, low cholesterol, low salt Follow up with: ABDIAS RODRIGUEZ MD [Primary Care Provider] - 3-5 Days JOSELYN BACH MD [Staff Physician] - 7 Days
[2019-05-13 15:07] VITALS: BP 127/98
[2019-05-13] MEDS: LOSARTAN 50 MG TAB PO SCH (16:19)
[2019-05-13] MEDS: METOPROLOL SUCCINATE XL 100 MG TAB PO SCH (16:19)
[2019-05-13] MEDS: SPIRONOLACTONE 50 MG TAB PO SCH (16:19)
--- NOTE | 2019-05-13 22:44 | Treadmill Report ---
THALLIUM STRESS TEST LEFT VENTRICLE: Left ventricular chamber size is within normal spread. Perfusion study demonstrates homogeneous uptake of the tracer in all segments, no significant defects identified. Gated analysis demonstrates normal left ventricular systolic function, ejection fraction is greater than 70%. CONCLUSION: Normal myocardial perfusion study. JOB# [id number] CA/NTS
== END 2019-05-13 17:21 | disposition home or self-care (01) ==
LOC: ED 09:50 → INTOOBSV 20:15 → 4A 20:15
PROVIDERS: ADMIT Internal Medicine; ATTEND Internal Medicine
DX: R07.89 Other chest pain (principal); I10 Essential (primary) hypertension; E11.9 Type 2 diabetes mellitus without complications; Z98.891 History of uterine scar from previous surgery
CPT/HCPCS: 36415; 71045; 78452; 80048; 80053; 80076; 81001; 82550; 82962; 83036; 84484; 85025; 93005; 93010; 93017; 96372; 96374; 96375; 96376; 99284; A9502; G0378; J1170; J1650; J2405; J2785

== ENCOUNTER 2019-07-04 13:34 | Emergency (ER) | payer BC ==
[2019-07-04] MEDS ORDERED: SODIUM CHLORIDE 0.9% 1000 ML IV SOLN IV ONE (14:48)
--- NOTE | 2019-07-04 15:07 | XRay Report ---
CHEST 1 VIEW 07/04/2019 2:26 PM INDICATION / CLINICAL INFORMATION: SOB. COMPARISON: 05/12/19 FINDINGS: SUPPORT DEVICES: None. HEART / MEDIASTINUM: No significant abnormality. LUNGS / PLEURA: No significant pulmonary or pleural abnormality. No pneumothorax. ADDITIONAL FINDINGS: No significant additional findings. IMPRESSION: 1. No acute findings. No significant change. Signer Name: Chato Calloway MD Signed: 07/04/2019 3:02 PM Workstation Name: [id number]
[2019-07-04 15:16] LABS: Hematocrit 31.3 % (30.3-42.9); Hemoglobin 10.2 gm/dl (10.1-14.3); Mean Corpuscular HGB Conc 33 % (30-34); Mean Corpuscular Volume 89 fl (79-97); Platelet Count 379 K/mm3 (140-440); Red Blood Count 3.53 M/mm3 (3.65-5.03); Red Cell Distribution Width 16.5 % (13.2-15.2)
--- NOTE | 2019-07-04 15:25 | Emergency Department Report ---
HPI - General Chief Complaint: Dyspnea/Respdistress Time Seen by Provider: 07/04/19 14:42 - HPI HPI: 49-year-old female presents to the emergency department with a complaint of a two-week history of shortness of breath, generalized weakness and fatigue. Patient also presents with a fever of 103F. She denies any chest pain, cough, sore throat, lower extremity-swelling. She has a past medical history of [id number] diabetes and hypertension. Patient says that she was recently placed on azithromycin for a sinus infection. She denies any tobacco or illicit drug use. No recent travel or sick contacts at home. ED Past Medical Hx - Past Medical History Previous Medical History?: Yes Hx Hypertension: Yes Hx Congestive Heart Failure: No Hx Diabetes: Yes Hx Asthma: No Hx COPD: No - Surgical History Past Surgical History?: Yes Additional Surgical History: X 2 - Social History Smoking Status: Never Smoker Substance Use Type: None - Medications Home Medications: Home Medications Medication Instructions Recorded Confirmed Last Taken Type Cyclobenzaprine [Flexeril] 10 mg PO DAILY PRN 05/12/19 05/12/19 05/12/19 History Aspirin [Adult Aspirin] 81 mg PO QDAY #100 tablet. 05/13/19 Unknown Rx Losartan [Cozaar] 50 mg PO QDAY #30 tablet 05/13/19 Unknown Rx Metoprolol Xl [Metoprolol 100 mg PO DAILY #30 tablet 05/13/19 Unknown Rx SUCCINATE ER TAB] Spironolactone [Aldactone] 50 mg PO DAILY #30 tablet 05/13/19 Unknown Rx oxyCODONE /ACETAMINOPHEN [Percocet 1 tab PO Q6H PRN tablet 05/13/19 Unknown Rx 5/325 mg] ED Review of Systems ROS: Stated complaint: SOB Other details as noted in HPI Comment: All other systems reviewed and negative Constitutional: chills, fever, weakness Eyes: denies: eye pain, vision change ENT: denies: ear pain, throat pain Respiratory: shortness of breath. denies: cough Cardiovascular: denies: chest pain, palpitations Gastrointestinal: denies: abdominal pain, vomiting Genitourinary: denies: dysuria, discharge Musculoskeletal: denies: back pain, arthralgia Skin: denies: rash, lesions Neurological: denies: headache, weakness Physical Exam - Physical Exam Vital Signs: Vital Signs 07/04/19 07/04/19 14:41 14:43 Temperature 103.1 F H Pulse Rate 138 H Respiratory 22 Rate Blood Pressure 127/81 [Right] O2 Sat by Pulse 98 100 Oximetry Physical Exam: GENERAL: The patient is well-developed well-nourished. HEENT: Normocephalic. Atraumatic. Patient has moist mucous membranes. EYES: Extraocular motions are intact. Pupils equal react to light bilaterally. NECK: Supple. Trachea is midline. CHEST/LUNGS: Clear to auscultation. There is no respiratory distress noted. HEART/CARDIOVASCULAR: Regular. There is moderate tachycardia. There is no gallop rub or murmur. ABDOMEN: Abdomen is soft, nontender. Patient has normal bowel sounds. There is no abdominal distention. SKIN: Skin is warm and dry. NEURO: The patient is awake, alert, and oriented. The patient is cooperative. The patient has no focal neurologic deficits. The patient has normal speech and gait. MUSCULOSKELETAL: There is no tenderness or deformity. There is no limitation range of motion. There is no evidence of acute injury. ED Course Vital Signs 07/04/19 07/04/19 14:41 14:43 Temperature 103.1 F H Pulse Rate 138 H Respiratory 22 Rate Blood Pressure 127/81 [Right] O2 Sat by Pulse 98 100 Oximetry ED Medical Decision Making - Lab Data Result diagrams: 07/04/19 14:55 07/04/19 14:55 - Radiology Data Radiology results: report reviewed, image reviewed interpreted by me: Chest x-ray does not show any pneumonia, pleural effusions, pneumothorax, focal consolidation, or any other acute process. NM lung scan perf/vent INDICATION / CLINICAL INFORMATION: SOB, elevated dimer. TECHNIQUE: Dose / Agent / Route: 3.8mCi technetium 99m MAA IV and 25mCi xenon-133 gas, inhaled. COMPARISON: Portable chest x-ray 07/04/2019 FINDINGS: There are no segmental or subsegmental perfusion defects. Ventilation images are normal. IMPRESSION: 1. Low probability for pulmonary embolus. - Medical Decision Making This patient presents with a 2 week history of some shortness of breath, generalized fatigue and weakness. She presents with a fever and tachycardia. The patient is on a beta jyotsna secondary to some history of palpitations or tachycardia. A code sepsis was called secondary to the fever and tachycardia. Patient's labs have been mostly unremarkable and do not show any signs of infection. The only significant abnormality wasn't elevated and equivocal d- dimer. A VQ scan resulted as low probability for a pulmonary embolus. Negative for influenza. Patient was given multiple liters of IV fluid resuscitation with some improvement of the heart rate and her symptoms. She was given Tylenol and Toradol for the fever. The patient was feeling improved and appears safe for discharge home. She is instructed to follow-up with the PCP and return to the ER if any worsening of her symptoms or any acute distress. - Differential Diagnosis sepsis, pneumonia, influenza, PE Critical Care Time: No Critical care attestation.: If time is entered above; I have spent that time in minutes in the direct care of this critically ill patient, excluding procedure time. ED Disposition Clinical Impression: Tachycardia Dyspnea Qualifiers: Dyspnea type: shortness of breath Qualified Code(s): R06.02 - Shortness of breath; R06.00 - Dyspnea, unspecified; R06.01 - Orthopnea Fever Qualifiers: Fever type: unspecified Qualified Code(s): R50.9 - Fever, unspecified Disposition: DC-01 TO HOME OR SELFCARE Is pt being admited?: No Condition: Fair Instructions: Fever in Adults (ED), Dyspnea (ED) Additional Instructions: return if worse Referrals: KASHIF EARLY MD [Primary Care Provider] - 3-5 Days Time of Disposition: 18:05
[2019-07-04 15:42] LABS: BUN/Creatinine Ratio 13; Blood Urea Nitrogen 10 mg/dL (7-17); Calcium 8.9 mg/dL (8.4-10.2); Hemolysis Index 105
[2019-07-04 15:44] LABS: Albumin 4.1 g/dL (3.9-5); Bilirubin,Direct 0.2 mg/dL (0-0.2)
[2019-07-04] MEDS ORDERED: ACETAMINOPHEN 325 MG TAB PO ONE (17:08)
[2019-07-04] MEDS ORDERED: KETOROLAC 30 MG/1 ML INJ IV ONE (17:09)
[2019-07-04 17:32] LABS: Bilirubin,Urine NEG (Negative); Blood,Urine SM (Negative); Color,Urine Amber (Yellow); Mucus,Urine 3+ /HPF; Urobilinogen,Urine < 2.0 mg/dL (<2.0)
[2019-07-04] MEDS ORDERED: SODIUM CHLORIDE 0.9% 1000 ML 1,000 ML ONE (17:50)
[2019-07-04] MEDS ORDERED: SODIUM CHLORIDE 0.9% 1000 ML 1,000 ML IV ONE (17:59)
[2019-07-04] MEDS ORDERED: diphenhydrAMINE 50 MG/ML VIAL IV ONE (18:35)
--- NOTE | 2019-07-04 19:50 | Nuclear Medicine Report ---
NM lung scan perf/vent INDICATION / CLINICAL INFORMATION: SOB, elevated dimer. TECHNIQUE: Dose / Agent / Route: 3.8mCi technetium 99m MAA IV and 25mCi xenon-133 gas, inhaled. COMPARISON: Portable chest x-ray 07/04/2019 FINDINGS: There are no segmental or subsegmental perfusion defects. Ventilation images are normal. IMPRESSION: 1. Low probability for pulmonary embolus. Signer Name: Reuben Aguirre MD Signed: 07/04/2019 7:46 PM Workstation Name: [id number]
[2019-07-04 21:26] LABS: Amphetamine Screen,Urine PRESUMPTIVE NEGATIVE; Benzodiazepines Screen,Urine PRESUMPTIVE NEGATIVE; Cannabinoid Screen,Urine PRESUMPTIVE NEGATIVE; Cocaine Screen,Urine PRESUMPTIVE NEGATIVE; Methadone Screen,Urine PRESUMPTIVE NEGATIVE; Opiate Screen,Urine PRESUMPTIVE NEGATIVE
--- NOTE | 2019-07-04 21:34 | Event Note ---
Date: 07/04/19 Patient states she has a history of rapid heartbeats and sees a physician for this. Patient offered admission but slightly declined.
[2019-07-04 21:49] VITALS: BP 120/63
== END 2019-07-04 21:49 | disposition home or self-care (01) ==
LOC: ED 13:34
DX: R00.0 Tachycardia, unspecified (principal); R06.02 Shortness of breath; R50.9 Fever, unspecified; I10 Essential (primary) hypertension; E11.9 Type 2 diabetes mellitus without complications
CPT/HCPCS: 36415; 71045; 78582; 80048; 80076; 80307; 81001; 82140; 83880; 84443; 84484; 85027; 85379; 87040; 87400; 93005; 93010; 96365; 96366; 96375; 99285; A9540; A9558; J1200; J1885; J1956; J7030